=== PATIENT | female | born 1995 | race Caucasian/White ===

== ENCOUNTER 2018-12-16 23:10 | Emergency (ER) | payer OTHER ==
[2018-12-16 23:20] VITALS: BP 123/77
[2018-12-17 00:30] LABS: HCG UR QUAL NEGATIVE
--- NOTE | 2018-12-17 00:32 | ED Physician Documentation ---
History of Present Illness - Stated complaint Stated Complaint: LT BREAST PAIN - Chief complaint Chief Complaint: General - Additonal information Additional information: 23-year-old female presents the emergency department for evaluation of left breast pain which is been ongoing for the past several weeks. The patient recently was started on a new control and her breasts have hurt since then. The patient is concerned about infection. The patient denies any focal area of pain in her left breast or redness or fever or drainage from her nipple. Symptoms are described as moderate. No attempts at symptom management. No other associated symptoms Review of Systems Constitutional: denies: Fever, Chills Eyes: denies: Discharge Ears: denies: Ear pain Nose: denies: Congestion Throat: denies: Sore throat Cardiac: denies: Chest pain / pressure Respiratory: denies: Cough GI: denies: Abdominal Pain : denies: Dysuria Skin: denies: Rash Neurologic: denies: Generalized weakness PD PAST MEDICAL HISTORY - Past Medical History Past Medical History: Yes Cardiovascular: None Respiratory: None Neuro: Migraines Endocrine/Autoimmune: None GI: None PERSONAL TRAINER: None : None HEENT: None Psych: None Musculoskeletal: None Derm: None - Past Surgical History Past Surgical History: No - Allergies Allergies/Adverse Reactions: Allergies Allergy/AdvReac Type Severity Reaction Status Date / Time No Known Drug Allergies Allergy Verified 12/16/18 23:20 - Social History Does the pt smoke?: No Smoking Status: Never smoker Does the pt drink ETOH?: Yes Does the pt have substance abuse?: No - Immunizations Immunizations are current?: No - POLST Patient has POLST: No PD ED PE NORMAL - General General: Alert and oriented X 3, No acute distress - HEENT HEENT: Atraumatic, PERRL, EOMI, Ears normal - Neck Neck: Supple, no meningeal sign - Cardiac Cardiac: RRR - Respiratory Respiratory: No respiratory distress - Female Female : Master Cosmetologist present, Other (Both breasts were examined. A nurse tire balancer was present. There was no skin changes or erythema of the breast. There is no palpable area of localized fluid collection to suggest abscess. The patient reported generalized tenderness. The breasts were symmetric. There is no drainage from the nipple. There is no evidence of an acute infection) - Derm Derm: Normal color - Neuro Neuro: Alert and oriented X 3, Normal speech - Psych Psych: Normal affect Results - Vitals Vitals: Vital Signs - 24 hr 12/16/18 23:19 Temperature 36.6 C Heart Rate 72 Respiratory 16 Rate Blood Pressure 123/77 O2 Saturation 99 Oxygen O2 Source Room air - Labs Labs: Laboratory Tests 12/17/18 00:05 Ur Specific [place] 1.010 Urine HCG, Qual NEGATIVE PD MEDICAL DECISION MAKING - ED course ED course: Clinically, there is no physical evidence to suggest cellulitis or abscess of the breast. Currently, the patient appears appropriate for discharge and ongoing outpatient management. I recommended follow-up with primary care since she may require outpatient imaging of her breast to further assess her ongoing pain. I discussed warning signs and recommended returning to the emergency department for any worsening or any concerns Departure - Departure Disposition: 01 Home, Self Care Clinical Impression: Breast pain Condition: Good Instructions: Self Exam Breast Follow-Up: Ciera Wong MD [Primary Care Provider] - Within 1 week (If your symptoms are not improving please ask your primary care to arrange for further evaluation with possible imaging as an outpatient of your ongoing breast pain) Comments: Please return to the emergency department immediately for any worsening or any concerns Discharge Date/Time: 12/17/18 00:59
== END 2018-12-17 00:59 | disposition home or self-care (01) ==
LOC: ED 23:10
DX: N64.4 Mastodynia (principal)
CPT/HCPCS: 81025; 99283

== ENCOUNTER 2019-11-11 16:49 | Emergency (ER) | payer OTHER ==
[2019-11-11 16:59] VITALS: BP 116/68
--- NOTE | 2019-11-11 17:24 | ED Physician Documentation ---
PD HPI OPHTHO - Stated complaint Stated Complaint: LT EYE SWOLLEN - Chief complaint Chief Complaint: Heent - History obtained from History obtained from: Patient - History of Present Illness Timing - onset: Yesterday Timing - details: Abrupt onset (noted when she woke up and has continued. Feels more pressure in the left cheek and behind the eye when she is leaning forward or laying down. Feels little bit better sitting up.) Location: Left Quality / character: No: Itching, Aching Associated symptoms: Swelling (She feels is a little bit of swelling of the eyelids upper and lower on the left. She denies any foreign body sensation or discharge no redness of the eye. She feels some pressure in the left cheek and sinus). No: Redness Contributing factors: No: Exposed to conjunctivitis, Recent URI, Wears contacts Similar symptoms before: Has not had sx before Review of Systems Constitutional: denies: Fever, Chills Eyes: denies: Loss of vision, Decreased vision, Photophobia, Discharge, Irritation Nose: reports: Congestion. denies: Rhinorrhea / runny nose Throat: denies: Sore throat Respiratory: denies: Cough Neurologic: denies: Focal weakness, Numbness, Headache PD PAST MEDICAL HISTORY - Past Medical History Past Medical History: Yes Cardiovascular: None Respiratory: None Neuro: Migraines Endocrine/Autoimmune: None GI: None LOCUM TENENS PSYCHIATRIST: None : None HEENT: None Psych: Depression, Other Musculoskeletal: None Derm: None Other Past Medical History: insomnia - Past Surgical History Past Surgical History: No - Present Medications Home Medications: Ambulatory Orders Medication Instructions Recorded Confirmed Cetirizine [ZyrTEC] 10 mg PO DAILY #15 tablet 11/11/19 dexAMETHasone [Decadron] 4 mg PO DAILY #5 tablet 11/11/19 - Allergies Allergies/Adverse Reactions: Allergies Allergy/AdvReac Type Severity Reaction Status Date / Time No Known Drug Allergies Allergy Verified 11/11/19 16:57 - Social History Does the pt smoke?: No Smoking Status: Never smoker Does the pt drink ETOH?: No Does the pt have substance abuse?: Yes Substance Use and Type: Marijuana - Immunizations Immunizations are current?: Yes - POLST Patient has POLST: No PD ED PE NORMAL - Vitals Vital signs reviewed: Yes - General General: Alert and oriented X 3, No acute distress, Well developed/nourished - HEENT HEENT: PERRL, EOMI, Ears normal, Moist mucous membranes, Pharynx benign, Other (There is some mild swelling of the left upper eyelid without any focal tenderness no redness. She is able to open and close her eye symmetrically. There is normal movement and motor exam of the forehead as well as the mouth.) - Derm Derm: Normal color, Warm and dry, No rash - Neuro Neuro: Alert and oriented X 3, crab fisher 2-12 intact, No motor deficit, No sensory def icit, Normal speech, Other Results - Vitals Vitals: Vital Signs - 24 hr 11/11/19 16:57 Temperature 37.1 C Heart Rate 106 H Respiratory 15 Rate Blood Pressure 116/68 O2 Saturation 99 Oxygen O2 Source Room air PD MEDICAL DECISION MAKING - ED course Complexity details: considered differential (There is a little puffiness on the eyelids making it look like a slight droop. However she can open and close her eye as well and the rest of the face appears normal movement. I do not get the sense of an early Clifford's palsy at this point. There is no eyelid redness nor focal tenderness so does not feel like a stye. She has a feeling of pressure on the left cheek and behind the eye so I feel this is most consistent with a sinusitis.), d/w patient Departure - Departure Disposition: 01 Home, Self Care Clinical Impression: Sinusitis, acute Qualifiers: Sinusitis location: sphenoidal Recurrence: non-recurrent Qualified Code(s): J01.30 - Acute sphenoidal sinusitis, unspecified Condition: Stable Record reviewed to determine appropriate education?: Yes Instructions: ED Sinusitis No Abx Follow-Up: Ciera Wong MD [Primary Care Provider] - Prescriptions: Cetirizine [ZyrTEC] 10 mg PO DAILY #15 tablet dexAMETHasone [Decadron] 4 mg PO DAILY #5 tablet Comments: At this point I think your symptoms are from sinus pressure and inflammation that below and behind the eye. We will treated with antihistamines and steroid anti-inflammatory over the next week. Stay well-hydrated. You can use some saline nose spray several times a day as well declines a nasal passages. Recheck if not improved well over the next several days and return if worsening symptoms of swelling around the eye or if you notice any weakness developing generally on the side of the face. Discharge Date/Time: 11/11/19 18:05
[2019-11-11] MEDS ORDERED: DEXAMETHASONE 10 MG/ML VIAL PO STA (17:46)
[2019-11-11] MEDS ORDERED: CHERRY SYRUP 10 ML UDC PO ONE (17:46)
[2019-11-11] MEDS ORDERED: CETIRIZINE 10 MG TABLET PO STA (17:46)
== END 2019-11-11 18:05 | disposition home or self-care (01) ==
LOC: ED 16:49
DX: J01.30 Acute sphenoidal sinusitis, unspecified (principal)
CPT/HCPCS: 99282; 99284; A9270

== ENCOUNTER 2020-01-16 23:54 | Emergency (ER) | payer OTHER ==
--- NOTE | 2020-01-17 00:04 | ED Physician Documentation ---
PD HPI HEADACHE - Stated complaint Stated Complaint: MIGRAINE,NAUSEA - Chief complaint Chief Complaint: Neuro - History obtained from History obtained from: Patient - History of Present Illness Timing - onset: Enter time (17:00), Today Timing - details: Gradual onset Worst headache ever?: No: Worst headache ever? Location: Front, Left Quality: Throbbing Associated symptoms: Nausea, Vomiting. No: Fever, Weakness, Numbness Improved by: Rest, Dark room, Quiet Worsened by: Light, Noise, Moving Contributing factors: No: Anticoagulated, Possible carbon monoxide, Hypertension, Recent illness, Trauma Similar symptoms before: Diagnosis (migraine) Recently seen: Not recently seen Review of Systems Constitutional: reports: Reviewed and negative Eyes: reports: Photophobia Neurologic: reports: Headache. 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 : None HEENT: None Psych: Depression, Other Musculoskeletal: None Derm: None - Past Surgical History Past Surgical History: No - Present Medications Home Medications: Ambulatory Orders Medication Instructions Recorded Confirmed Guanfacine HCl 1 mg PO QPM 01/17/20 01/17/20 Ondansetron Odt [Zofran Odt] 4 mg PO Q4HR PRN 01/17/20 01/17/20 Promethazine [Phenergan] 25 mg PO Q6H PRN #10 tab 01/17/20 SUMAtriptan [Imitrex] 25 mg PO ONCE PRN #20 tablet 01/17/20 Venlafaxine [Effexor] 37.5 mg PO DAILY 01/17/20 01/17/20 - Allergies Allergies/Adverse Reactions: Allergies Allergy/AdvReac Type Severity Reaction Status Date / Time No Known Drug Allergies Allergy Verified 01/17/20 00:12 - Social History Does the pt smoke?: No Smoking Status: Never smoker Does the pt drink ETOH?: No Does the pt have substance abuse?: Yes - Immunizations Immunizations are current?: Yes - POLST Patient has POLST: No PD ED PE NORMAL - Vitals Vital signs reviewed: Yes - General General: Alert and oriented X 3, Well developed/nourished, Other (NAD in dark room (lights out for patient comfort)) - HEENT HEENT: Moist mucous membranes - Neck Neck: Supple, no meningeal sign - Cardiac Cardiac: RRR, No murmur - Respiratory Respiratory: No respiratory distress, Clear bilaterally - Neuro Neuro: Alert and oriented X 3, traverse rod assembler 2-12 intact, No motor deficit, No sensory deficit, Normal speech Eye Opening: Spontaneous Motor: Obeys Commands Verbal: Oriented GCS Score: 15 Results - Vitals Vitals: Oxygen O2 Source Room air PD MEDICAL DECISION MAKING - ED course Complexity details: re-evaluated patient, considered differential, d/w patient ED course: presents with headache c/w previous migraines. has had w/u for migraines in the past including MRI. excellent relief in ED with toradol, benadryl, and phenergan Departure - Departure Disposition: 01 Home, Self Care Clinical Impression: Migraine Qualifiers: Migraine type: without aura Status migrainosus presence: with status migrainosus Intractability: not intractable Qualified Code(s): G43.001 - Migraine without aura, not intractable, with status migrainosus Condition: Good Instructions: Imitrex, ED Headache Migraine Follow-Up: Ciera Wong MD [Primary Care Provider] - Prescriptions: Promethazine [Phenergan] 25 mg PO Q6H PRN #10 tab PRN Reason: Nausea / Vomiting SUMAtriptan [Imitrex] 25 mg PO ONCE PRN #20 tablet PRN Reason: Headache Discharge Date/Time: 01/17/20 02:19
[2020-01-17] MEDS ORDERED: KETOROLAC 60 MG/2 ML VIAL IM STA (00:20)
[2020-01-17] MEDS ORDERED: PROMETHAZINE 25 MG/1 ML VIAL IM STA (00:20)
[2020-01-17] MEDS ORDERED: diphenhydrAMINE INJ 50 MG/ML VIAL IM STA (00:21)
[2020-01-17 02:19] VITALS: BP 104/74
== END 2020-01-17 02:19 | disposition home or self-care (01) ==
LOC: ED 23:54
DX: G43.001 Migraine without aura, not intractable, with status migrainosus (principal)
CPT/HCPCS: 96372; 99283; 99284; J1200

== ENCOUNTER 2020-08-06 20:33 | Emergency (ER) | payer OTHER ==
--- NOTE | 2020-08-06 21:35 | ED Physician Documentation ---
History of Present Illness - Stated complaint Stated Complaint: TOOTH PX - Chief complaint Chief Complaint: Heent - History obtained from History obtained from: Patient - Additonal information Additional information: The patient is a 25-year-old female presents with a chief complaint of dental pain. She reports about 3 to 4 weeks ago she had a partial tooth removal on her left posterior molar and reports some inflammation irritation and noted some discharge without facial swelling or fevers. Otherwise denies any complaints denies any history of endocarditis or IV drug abuse. Review of Systems Constitutional: reports: Reviewed and negative Eyes: reports: Reviewed and negative Ears: reports: Reviewed and negative Nose: reports: Reviewed and negative Throat: reports: Dental pain / toothache Cardiac: reports: Reviewed and negative Respiratory: reports: Reviewed and negative GI: reports: Reviewed and negative : reports: Reviewed and negative Skin: reports: Reviewed and negative Musculoskeletal: reports: Reviewed and negative Neurologic: reports: Reviewed and negative Psychiatric: reports: Reviewed and negative Endocrine: reports: Reviewed and negative Immunocompromised: reports: Reviewed and negative PD PAST MEDICAL HISTORY - Past Medical History Cardiovascular: None Respiratory: None Neuro: Migraines Endocrine/Autoimmune: None GI: None LITIGATION COUNSEL: None : None HEENT: None Psych: Depression, Other Musculoskeletal: None Derm: None - Past Surgical History Past Surgical History: No - Present Medications Home Medications: Ambulatory Orders Medication Instructions Recorded Confirmed Guanfacine HCl 1 mg PO QPM 01/17/20 01/17/20 Ondansetron Odt [Zofran Odt] 4 mg PO Q4HR PRN 01/17/20 01/17/20 Promethazine [Phenergan] 25 mg PO Q6H PRN #10 tab 01/17/20 SUMAtriptan [Imitrex] 25 mg PO ONCE PRN #20 tablet 01/17/20 Venlafaxine [Effexor] 37.5 mg PO DAILY 01/17/20 01/17/20 Penicillin V Potassium 500 mg PO QID #28 tablet 08/06/20 - Allergies Allergies/Adverse Reactions: Allergies Allergy/AdvReac Type Severity Reaction Status Date / Time No Known Drug Allergies Allergy Verified 08/06/20 20:45 - Social History Does the pt smoke?: No Smoking Status: Never smoker Does the pt drink ETOH?: No Does the pt have substance abuse?: Yes - Immunizations Immunizations are current?: Yes - POLST Patient has POLST: No PD ED PE NORMAL - Vitals Vital signs reviewed: Yes - General General: Alert and oriented X 3, No acute distress - HEENT HEENT: PERRL, Other (Tenderness and erythema around tooth position #17 but no obvious abscess or fluctuance or induration.No signs of ANUG or Jorge Alberto's.) - Neck Neck: Supple, no meningeal sign - Cardiac Cardiac: RRR, No murmur - Respiratory Respiratory: Clear bilaterally - Abdomen Abdomen: Normal bowel sounds, Soft, Non tender, Non distended - Derm Derm: Warm and dry - Extremities Extremities: No deformity - Neuro Neuro: Alert and oriented X 3 - Psych Psych: Normal mood, Normal affect PD ED PE EXPANDED - HEENT HEENT Visual: 1 - tenderness 2 - tenderness Results - Vitals Vitals: Vital Signs - 24 hr 08/06/20 08/06/20 20:40 22:08 Temperature 37.1 C 37 C Heart Rate 97 78 Respiratory 17 18 Rate Blood Pressure 141/93 H 129/80 O2 Saturation 100 98 Oxygen O2 Source Room air - Labs Labs: Laboratory Tests 08/06/20 21:30 Ur Specific [place] 1.010 Urine HCG, Qual NEGATIVE PD MEDICAL DECISION MAKING - ED course Complexity details: considered differential (dental infection post partial tooth extraction, no obvious abscess for I&D. will intiate treatment with pen vk.) Departure - Departure Disposition: 01 Home, Self Care Clinical Impression: Dental infection Condition: Stable Instructions: ED Tooth Pain Follow-Up: Ciera Wong MD [Primary Care Provider] - 08/09/20 Prescriptions: Penicillin V Potassium 500 mg PO QID #28 tablet Comments: take antibiotics as directed. take ibuprofen or tylenol as needed for pain. follow up with your dental provider on sunday. return to the emergency department for worsening pain, fevers, swelling or any concerns. Discharge Date/Time: 08/06/20 22:08
[2020-08-06 21:42] LABS: HCG UR QUAL NEGATIVE
[2020-08-06] MEDS ORDERED: PENICILLIN VK 250 MG TABLET PO STA (21:55)
[2020-08-06 22:08] VITALS: BP 129/80
== END 2020-08-06 22:08 | disposition home or self-care (01) ==
LOC: ED 20:33
DX: K04.7 Periapical abscess without sinus (principal)
CPT/HCPCS: 81025; 99283; 99284; A9270

== ENCOUNTER 2020-10-28 15:41 | Emergency (ER) | payer OTHER ==
[2020-10-28] MEDS ORDERED: PANTOPRAZOLE 40 MG VIAL IVP STA (16:15)
[2020-10-28] MEDS ORDERED: ONDANSETRON 4 MG/2 ML VIAL IVP STA (16:18)
--- NOTE | 2020-10-28 16:27 | ED Physician Documentation ---
History of Present Illness - Stated complaint Stated Complaint: N/V - Chief complaint Chief Complaint: Abd Pain - History obtained from History obtained from: Patient - History of Present Illness Timing: Yesterday Pain level max: 0 Pain level now: 0 - Additonal information Additional information: 25-year-old female uses marijuana 3-4 times a week. She states that she started vomiting last night and has continued to vomit today. One episode had bright red blood, another episode today had dark blood in it. She states the last episode did not appear to have blood. No diarrhea. No constipation. Denies any possibility of . No fevers. No chills. No recent antibiotics or travel. Nothing makes it better or worse. 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 : None HEENT: None Psych: Depression, Other Musculoskeletal: None Derm: None - Past Surgical History Past Surgical History: No - Present Medications Home Medications: Ambulatory Orders Medication Instructions Recorded Confirmed Guanfacine HCl 1 mg PO QPM 01/17/20 01/17/20 Ondansetron Odt [Zofran Odt] 4 mg PO Q4HR PRN 01/17/20 01/17/20 Promethazine [Phenergan] 25 mg PO Q6H PRN #10 tab 01/17/20 SUMAtriptan [Imitrex] 25 mg PO ONCE PRN #20 tablet 01/17/20 Venlafaxine [Effexor] 37.5 mg PO DAILY 01/17/20 01/17/20 Penicillin V Potassium 500 mg PO QID #28 tablet 08/06/20 Esomeprazole Magnesium [Nexium] 20 mg PO DAILY #30 capsule. 10/28/20 Ondansetron Odt [Zofran] 4 mg TL Q6H PRN #10 tablet 10/28/20 - Allergies Allergies/Adverse Reactions: Allergies Allergy/AdvReac Type Severity Reaction Status Date / Time No Known Drug Allergies Allergy Verified 10/28/20 15:53 - Social History Does the pt smoke?: No Smoking Status: Never smoker Does the pt drink ETOH?: No Does the pt have substance abuse?: Yes - Immunizations Immunizations are current?: Yes - POLST Patient has POLST: No PD ED PE NORMAL - Vitals Vital signs reviewed: Yes - General General: Alert and oriented X 3, No acute distress - HEENT HEENT: Moist mucous membranes - Neck Neck: Supple, no meningeal sign, Other (No crepitus) - Cardiac Cardiac: RRR, Strong equal pulses - Respiratory Respiratory: No respiratory distress, Clear bilaterally - Abdomen Abdomen: Soft, Non tender, Non distended - Back Back: No CVA TTP - Derm Derm: Warm and dry - Extremities Extremities: No edema, No calf tenderness / cord - Neuro Neuro: Alert and oriented X 3 - Psych Psych: Normal mood, Normal affect Results - Vitals Vitals: Vital Signs - 24 hr 10/28/20 10/28/20 15:47 18:54 Temperature 36.8 C 36.9 C Heart Rate 98 86 Respiratory 16 18 Rate Blood Pressure 132/95 H 115/63 O2 Saturation 97 100 Oxygen O2 Source Room air - Labs Labs: Laboratory Tests 10/28/20 10/28/20 10/28/20 17:00 17:00 17:00 WBC 11.8 H RBC 4.55 Hgb 13.4 Hct 42.4 MCV 93.2 MCH 29.5 MCHC 31.6 L RDW 13.0 Plt Count 348 MPV 10.8 Neut # (Auto) 8.0 H Lymph # (Auto) 2.9 [place] # (Auto) 0.6 Eos # (Auto) 0.1 Baso # (Auto) 0.1 Absolute Nucleated RBC 0.00 Nucleated RBC % 0.0 PT INR APTT Sodium 137 Potassium 3.1 L Chloride 103 Carbon Dioxide 22 Anion Gap 12.0 BUN 9 Creatinine 0.6 Estimated GFR (MDRD) 124 Glucose 109 H Calcium 9.5 Total Bilirubin 1.3 H AST 19 ALT 13 Alkaline Phosphatase 51 Total Protein 8.2 Albumin 4.7 Globulin 3.5 Albumin/Globulin Ratio 1.3 Lipase 27 Blood Type A POSITIVE Antibody Screen NEGATIVE 10/28/20 17:44 WBC RBC Hgb Hct MCV MCH MCHC RDW Plt Count MPV Neut # (Auto) Lymph # (Auto) [place] # (Auto) Eos # (Auto) Baso # (Auto) Absolute Nucleated RBC Nucleated RBC % PT 12.7 H INR 1.1 APTT 24.5 L Sodium Potassium Chloride Carbon Dioxide Anion Gap BUN Creatinine Estimated GFR (MDRD) Glucose Calcium Total Bilirubin AST ALT Alkaline Phosphatase Total Protein Albumin Globulin Albumin/Globulin Ratio Lipase Blood Type Antibody Screen PD MEDICAL DECISION MAKING - ED course Complexity details: reviewed results, re-evaluated patient, considered differential, d/w patient ED course: Patient is well-appearing, nontoxic. Afebrile. No further vomiting here. Symptoms resolved with Zofran and haloperidol. Hemoglobin is normal. Vital signs are stable. Tolerating p.o. without difficulty. Likely small amount of upper GI bleed secondary to forceful vomiting. No crepitus. No evidence of esophageal rupture. Patient counseled regarding signs and symptoms for which I believe and urgent re-evaluation would be necessary. Patient with good understanding of and agreement to plan and is comfortable going home at this time This document was made in part using voice recognition software. While efforts are made to proofread this document, sound alike and grammatical errors may occur. We will place on a PPI for home. Departure - Departure Disposition: 01 Home, Self Care Clinical Impression: Vomiting Qualifiers: Vomiting type: unspecified Vomiting Intractability: non-intractable Nausea presence: with nausea Qualified Code(s): R11.2 - Nausea with vomiting, unspecified Condition: Good Instructions: ED Nausea Vomiting Follow-Up: Ciera Wong MD [Primary Care Provider] - Within 1 week Prescriptions: Esomeprazole Magnesium [Nexium] 20 mg PO DAILY #30 capsule. Ondansetron Odt [Zofran] 4 mg TL Q6H PRN #10 tablet PRN Reason: Nausea / Vomiting Comments: Follow-up with your doctor for further care. Return if you worsen. Drink plenty of fluids. If you have continued bleeding, you need to return to the emergency department. Discharge Date/Time: 10/28/20 19:00
[2020-10-28 17:22] LABS: BASOPHILS # (AUTO) 0.1 10^3/uL (0.0-0.1); BASOPHILS % (AUTO) 0.8 %; EOSINOPHILS # (AUTO) 0.1 10^3/uL (0.0-0.7); EOSINOPHILS % (AUTO) 0.7 %; HGB - HEMOGLOBIN 13.4 g/dL (12.0-16.0); LYMPHOCYTES # (AUTO) 2.9 10^3/uL (1.5-3.5); LYMPHOCYTES % (AUTO) 24.6 %; MEAN CORPUSCULAR HEMOGLOBIN 29.5 pg (27.0-31.0); MEAN CORPUSCULAR HGB CONC 31.6 g/dL (32.0-36.0); MEAN CORPUSCULAR VOLUME 93.2 fL (81.0-99.0); MEAN PLATELET VOLUME 10.8 fL (7.9-10.8); MONOCYTES # (AUTO) 0.6 10^3/uL (0.0-1.0); MONOCYTES % (AUTO) 5.3 %; NEUTROPHILS % (AUTO) 68.2 %; PLT - PLATELET COUNT 348 10^3/uL (130-450); RED BLOOD COUNT 4.55 10^6/uL (4.20-5.40); WHITE BLOOD COUNT 11.8 x10^3/uL (4.8-10.8)
[2020-10-28 17:32] LABS: ALBUMIN 4.7 g/dL (3.2-5.5); ALBUMIN/GLOBULIN RATIO 1.3 (1.0-2.2); BILIRUBIN,TOTAL 1.3 mg/dL (0.2-1.0); CALCIUM 9.5 mg/dL (8.5-10.3); CREATININE 0.6 mg/dL (0.4-1.0); TOTAL PROTEIN 8.2 g/dL (6.7-8.2)
[2020-10-28] MEDS ORDERED: SODIUM CHLORIDE 0.9% 1,000 ML IV STA (17:46)
[2020-10-28] MEDS ORDERED: HALOPERIDOL 5 MG/ML VIAL IVP STA (17:46)
[2020-10-28 17:58] LABS: INR 1.1 (0.8-1.2); PT - PROTHROMBIN TIME 12.7 secs (9.9-12.6)
[2020-10-28 18:05] LABS: PARTIAL THROMBOPLASTIN TIME 24.5 secs (24.9-33.3)
[2020-10-28 18:55] VITALS: BP 115/63
== END 2020-10-28 19:00 | disposition home or self-care (01) ==
LOC: ED 15:41
DX: R11.2 Nausea with vomiting, unspecified (principal)
CPT/HCPCS: 36415; 80053; 81001; 81003; 83690; 85025; 85610; 85730; 86850; 86900; 86901; 87086; 96374; 96375; 99284

== ENCOUNTER 2021-07-11 18:29 | Emergency (ER) | payer OTHER ==
[2021-07-11] MEDS ORDERED: SODIUM CHLORIDE 0.9% 1,000 ML IV STA (19:54)
[2021-07-11] MEDS ORDERED: ONDANSETRON 4 MG/2 ML VIAL IVP STA (19:55)
[2021-07-11] MEDS ORDERED: diphenhydrAMINE INJ 50 MG/ML VIAL IVP STA (19:55)
[2021-07-11] MEDS ORDERED: KETOROLAC 30 MG/ML VIAL IVP STA (19:55)
--- NOTE | 2021-07-11 20:09 | ED Physician Documentation ---
History of Present Illness - Stated complaint Stated Complaint: NAUSEA, MIGRAINE, FATIGUE, BACK PX - Chief complaint Chief Complaint: General - History obtained from History obtained from: Patient, Family - History of Present Illness Timing: How many weeks ago (2) Pain level max: 6 Pain level now: 5 - Additonal information Additional information: 25-year-old female presents to the emergency department stating she has had intermittent migraine headaches for the past 2 weeks. This is a chronic ongoing condition for her. FiDiurnalet used to work well but she ran out. She also states that she is on lithium and has not had her level checked for about 6 months. She states that she has had diarrhea as well. No blood in the stool. No fevers. Occasional abdominal cramping. Nothing makes it better or worse. No recent antibiotics. No vaginal bleeding or discharge. No urinary symptoms. 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 HEENT: None Psych: Depression, Other Musculoskeletal: None Derm: None - Past Surgical History Past Surgical History: No - Present Medications Home Medications: Ambulatory Orders Medication Instructions Recorded Confirmed Guanfacine HCl 1 mg PO QPM 01/17/20 01/17/20 Ondansetron Odt [Zofran Odt] 4 mg PO Q4HR PRN 01/17/20 01/17/20 Promethazine [Phenergan] 25 mg PO Q6H PRN #10 tab 01/17/20 SUMAtriptan [Imitrex] 25 mg PO ONCE PRN #20 tablet 01/17/20 Venlafaxine [Effexor] 37.5 mg PO DAILY 01/17/20 01/17/20 Penicillin V Potassium 500 mg PO QID #28 tablet 08/06/20 Esomeprazole Magnesium [Nexium] 20 mg PO DAILY #30 capsule. 10/28/20 Ondansetron Odt [Zofran] 4 mg TL Q6H PRN #10 tablet 10/28/20 Butalb/Acetaminophen/Caffeine 1 cap PO Q6H PRN #10 cap 07/11/21 [Fioricet 50-300-40 mg Capsule] - Allergies Allergies/Adverse Reactions: Allergies Allergy/AdvReac Type Severity Reaction Status Date / Time No Known Drug Allergies Allergy Verified 07/11/21 18:35 - Social History Does the pt smoke?: No Smoking Status: Never smoker Does the pt drink ETOH?: No Does the pt have substance abuse?: Yes - Immunizations Immunizations are current?: Yes - POLST Patient has POLST: No PD ED PE NORMAL - Vitals Vital signs reviewed: Yes - General General: Alert and oriented X 3 - HEENT HEENT: Atraumatic, PERRL, Moist mucous membranes - Neck Neck: Supple, no meningeal sign - Cardiac Cardiac: RRR, Strong equal pulses - Respiratory Respiratory: No respiratory distress, Clear bilaterally - Abdomen Abdomen: Soft, Non tender, Non distended - Back Back: No CVA TTP, No spinal TTP - Derm Derm: Warm and dry - Extremities Extremities: No edema, No calf tenderness / cord - Neuro Neuro: Alert and oriented 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, 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, No motor deficit, No sensory deficit, Normal speech Eye Opening: Spontaneous Motor: Obeys Commands Verbal: Oriented GCS Score: 15 Results - Vitals Vitals: Vital Signs - 24 hr 07/11/21 07/11/21 07/11/21 18:35 19:59 21:45 Temperature 36.5 C 37.1 C Heart Rate 100 82 82 Respiratory 16 16 14 Rate Blood Pressure 130/83 H 135/89 H 119/89 H O2 Saturation 100 98 98 Oxygen O2 Source Room air - Labs Labs: Laboratory Tests 07/11/21 07/11/21 07/11/21 19:02 20:13 20:13 WBC 10.2 RBC 4.54 Hgb 13.7 Hct 42.4 MCV 93.4 MCH 30.2 MCHC 32.3 RDW 13.2 Plt Count 326 MPV 10.4 Neut # (Auto) 7.0 H Lymph # (Auto) 2.5 [place] # (Auto) 0.6 Eos # (Auto) 0.0 Baso # (Auto) 0.1 Absolute Nucleated RBC 0.00 Nucleated RBC % 0.0 Sodium 138 Potassium 3.4 L Chloride 101 Carbon Dioxide 25 Anion Gap 12.0 BUN 6 Creatinine 0.6 Estimated GFR (MDRD) 124 Glucose 91 Calcium 9.8 Total Bilirubin 1.6 H AST 17 ALT 21 Alkaline Phosphatase 46 Total Protein 8.4 H Albumin 4.9 Globulin 3.5 Albumin/Globulin Ratio 1.4 Lipase 29 Urine Color YELLOW Urine Clarity CLEAR Urine pH 6.0 Ur Specific [place] 1.020 Urine Protein NEGATIVE Urine Glucose (UA) NEGATIVE Urine Ketones NEGATIVE Urine Occult Blood NEGATIVE Urine Nitrite NEGATIVE Urine Bilirubin NEGATIVE Urine Urobilinogen 0.2 (NORMAL) Ur Leukocyte Esterase NEGATIVE Ur Microscopic Review NOT INDICATED Urine Culture Comments NOT INDICATED Urine HCG, Qual NEGATIVE Last Dose Date Last Dose Time [place] 07/11/21 20:13 WBC RBC Hgb Hct MCV MCH MCHC RDW Plt Count MPV Neut # (Auto) Lymph # (Auto) [place] # (Auto) Eos # (Auto) Baso # (Auto) Absolute Nucleated RBC Nucleated RBC % Sodium Potassium Chloride Carbon Dioxide Anion Gap BUN Creatinine Estimated GFR (MDRD) Glucose Calcium Total Bilirubin AST ALT Alkaline Phosphatase Total Protein Albumin Globulin Albumin/Globulin Ratio Lipase Urine Color Urine Clarity Urine pH Ur Specific [place] Urine Protein Urine Glucose (UA) Urine Ketones Urine Occult Blood Urine Nitrite Urine Bilirubin Urine Urobilinogen Ur Leukocyte Esterase Ur Microscopic Review Urine Culture Comments Urine HCG, Qual Last Dose Date Not Reportable Last Dose Time Not Reportable [place] 0.21 PD MEDICAL DECISION MAKING - ED course Complexity details: reviewed results, re-evaluated patient, considered differential, d/w patient ED course: No significant lab abnormalities. Feels much better after IV fluids, Toradol, Zofran and Benadryl. Headache resolved. No diarrhea in the emergency department. We will prescribe Fioricet for home. We will have her follow-up with her doctor for further investigation of the diarrhea if this continues. Patient is very well-appearing, nontoxic. Tolerating p.o. without difficulty. Patient counseled regarding signs and symptoms for which I believe and urgent re-evaluation would be necessary. Patient with good understanding of and agreement to plan and is comfortable going home at this time This document was made in part using voice recognition software. While efforts are made to proofread this document, sound alike and grammatical errors may occur. Departure - Departure Disposition: 01 Home, Self Care Clinical Impression: Migraine Qualifiers: Migraine type: unspecified Status migrainosus presence: without status migrainosus Intractability: not intractable Qualified Code(s): G43.909 - Migraine, unspecified, not intractable, without status migrainosus Diarrhea Qualifiers: Diarrhea type: unspecified type Qualified Code(s): R19.7 - Diarrhea, unspecified Condition: Good Instructions: ED Diet Vomiting Diarrhea, ED Headache Migraine Follow-Up: YUDY RAMIREZ DO [Primary Care Provider] - Within 1 week Prescriptions: Butalb/Acetaminophen/Caffeine [Fioricet 50-300-40 mg Capsule] 1 cap PO Q6H PRN #10 cap PRN Reason: headache Comments: Please follow-up with your doctor for further care. Return if you worsen. Continue your current medications at home. If you continue have diarrhea, you should have a stool testing performed by your doctor. Discharge Date/Time: 07/11/21 21:46
[2021-07-11 20:21] LABS: BILIRUBIN,URINE NEGATIVE (NEGATIVE); GLUCOSE, URINE (UA) NEGATIVE (NEGATIVE); KETONES,URINE (UA) NEGATIVE (NEGATIVE); LEUKOCYTE ESTERASE, URINE NEGATIVE (NEGATIVE); NITRITE,URINE NEGATIVE (NEGATIVE); OCCULT BLOOD,URINE NEGATIVE (NEGATIVE); PROTEIN,URINE NEGATIVE (NEGATIVE); UROBILINOGEN,URINE 0.2 (NORMAL) E.U./dL (NORMAL)
[2021-07-11 20:29] LABS: CLARITY,URINE CLEAR (CLEAR); HCG UR QUAL NEGATIVE
[2021-07-11 20:33] LABS: BASOPHILS # (AUTO) 0.1 10^3/uL (0.0-0.1); BASOPHILS % (AUTO) 0.7 %; EOSINOPHILS % (AUTO) 0.4 %; HCT - HEMATOCRIT 42.4 % (37.0-47.0); HGB - HEMOGLOBIN 13.7 g/dL (12.0-16.0); LYMPHOCYTES # (AUTO) 2.5 10^3/uL (1.5-3.5); LYMPHOCYTES % (AUTO) 24.6 %; MEAN CORPUSCULAR HEMOGLOBIN 30.2 pg (27.0-31.0); MEAN CORPUSCULAR HGB CONC 32.3 g/dL (32.0-36.0); MEAN CORPUSCULAR VOLUME 93.4 fL (81.0-99.0); MEAN PLATELET VOLUME 10.4 fL (7.9-10.8); MONOCYTES # (AUTO) 0.6 10^3/uL (0.0-1.0); MONOCYTES % (AUTO) 5.4 %; NEUTROPHILS % (AUTO) 68.6 %; PLT - PLATELET COUNT 326 10^3/uL (130-450); RED BLOOD COUNT 4.54 10^6/uL (4.20-5.40); RED CELL DISTRIBUTION WIDTH 13.2 % (12.0-15.0); WHITE BLOOD COUNT 10.2 x10^3/uL (4.8-10.8)
[2021-07-11 20:36] LABS: ALBUMIN 4.9 g/dL (3.2-5.5); ALBUMIN/GLOBULIN RATIO 1.4 (1.0-2.2); BILIRUBIN,TOTAL 1.6 mg/dL (0.2-1.0); CALCIUM 9.8 mg/dL (8.5-10.3); CREATININE 0.6 mg/dL (0.4-1.0); POTASSIUM 3.4 mmol/L (3.5-5.0); TOTAL PROTEIN 8.4 g/dL (6.7-8.2)
[2021-07-11 20:41] LABS: LITHIUM 0.21 mmol/L
[2021-07-11 21:46] VITALS: BP 119/89
== END 2021-07-11 21:46 | disposition home or self-care (01) ==
LOC: ED 18:29
DX: G43.909 Migraine, unspecified, not intractable, without status migrainosus (principal); R19.7 Diarrhea, unspecified
CPT/HCPCS: 36415; 80053; 80178; 81003; 81025; 83690; 85025; 96374; 96375; 99283; 99284; J1200; 81001; 87086

== ENCOUNTER 2022-01-18 18:11 | Emergency (ER) | payer OTHER ==
[2022-01-18 18:17] VITALS: BP 125/80
[2022-01-18] MEDS ORDERED: DEXAMETHASONE 10 MG/ML VIAL PO STA (18:41)
[2022-01-18] MEDS ORDERED: CHERRY SYRUP 10 ML UDC PO ONE (18:41)
[2022-01-18] MEDS ORDERED: HYDROcod/ACETAM 5/325 MG TABLET PO STA (18:41)
--- NOTE | 2022-01-18 18:44 | ED Physician Documentation ---
History of Present Illness - Stated complaint Stated Complaint: JAW PX - Chief complaint Chief Complaint: General - History obtained from History obtained from: Patient - History of Present Illness Timing: How many weeks ago (1) Pain level max: 8 Pain level now: 5 - Additonal information Additional information: 26-year-old female states she has a history of TMJ syndrome. She states increasing pain to the right TMJ. Worse with opening and closing her mouth. No relief with Tylenol and Motrin. No trauma. No fevers. No chills. Denies any possibility of . 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 HEENT: None Psych: Depression, Other Musculoskeletal: None Derm: None - Past Surgical History Past Surgical History: No - Present Medications Home Medications: Ambulatory Orders Medication Instructions Recorded Confirmed Guanfacine HCl 1 mg PO QPM 01/17/20 01/17/20 Ondansetron Odt [Zofran Odt] 4 mg PO Q4HR PRN 01/17/20 01/17/20 Promethazine [Phenergan] 25 mg PO Q6H PRN #10 tab 01/17/20 SUMAtriptan [Imitrex] 25 mg PO ONCE PRN #20 tablet 01/17/20 Venlafaxine [Effexor] 37.5 mg PO DAILY 01/17/20 01/17/20 Penicillin V Potassium 500 mg PO QID #28 tablet 08/06/20 Esomeprazole Magnesium [Nexium] 20 mg PO DAILY #30 capsule. 10/28/20 Ondansetron Odt [Zofran] 4 mg TL Q6H PRN #10 tablet 10/28/20 Butalb/Acetaminophen/Caffeine 1 cap PO Q6H PRN #10 cap 07/11/21 [Fioricet 50-300-40 mg Capsule] HYDROcod/ACETAM 5/325 [[place] 5/325] 1 - 2 ea PO Q6H PRN #10 tablet 01/18/22 Meloxicam [Mobic] 15 mg PO DAILY PRN #20 tablet 01/18/22 - Allergies Allergies/Adverse Reactions: Allergies Allergy/AdvReac Type Severity Reaction Status Date / Time No Known Drug Allergies Allergy Verified 01/18/22 18:17 - Social History Does the pt smoke?: No Smoking Status: Never smoker Does the pt drink ETOH?: No Does the pt have substance abuse?: Yes - Immunizations Immunizations are current?: Yes - POLST Patient has POLST: No PD ED PE NORMAL - Vitals Vital signs reviewed: Yes - General General: Alert and oriented X 3, No acute distress - HEENT HEENT: Moist mucous membranes, Other (No swelling over the bilateral TMJ. The right TMJ has crepitus with opening and closing of the jaw.) - Neck Neck: Supple, no meningeal sign - Cardiac Cardiac: RRR - Respiratory Respiratory: No respiratory distress, Clear bilaterally - Derm Derm: Warm and dry - Neuro Neuro: Alert and oriented X 3 Results - Vitals Vitals: Vital Signs - 24 hr 01/18/22 18:15 Temperature 36.9 C Heart Rate 87 Respiratory 16 Rate Blood Pressure 125/80 O2 Saturation 100 Oxygen O2 Source Room air PD MEDICAL DECISION MAKING - ED course Complexity details: considered differential, d/w patient ED course: Patient with what appears to be TMJ of the right side of the jaw. No evidence of dislocation or infection. No indication for imaging. Given a dose of steroids, will place on pain medication for a few days for home. Recommend she follow-up with her dentist to discuss mouthguard that she does clench and grind her teeth regularly as well. Patient counseled regarding signs and symptoms for which I believe and urgent re-evaluation would be necessary. Patient with good understanding of and agreement to plan and is comfortable going home at this t [facility] This document was made in part using voice recognition software. While efforts are made to proofread this document, sound alike and grammatical errors may occur. Departure - Departure Disposition: 01 Home, Self Care Clinical Impression: TMJ arthralgia Qualifiers: Laterality: right Qualified Code(s): M26.621 - Arthralgia of right temporomandibular joint Condition: Good Instructions: ED TMJ Syndrome Follow-Up: your,dentist this week [Other] Prescriptions: Meloxicam [Mobic] 15 mg PO DAILY PRN #20 tablet PRN Reason: pain HYDROcod/ACETAM 5/325 [[place] 5/325] 1 - 2 ea PO Q6H PRN #10 tablet PRN Reason: Pain Comments: Please follow-up with your dentist for further care. Return if you worsen. Your prescriptions were sent to [facility] in [place]. I am prescribing a short course of narcotic pain medication for you. These are potentially dangerous and addictive medications that should be used carefully. These medications may constipate you. Take an znlv-zhm-wnezaan stool softener (docusate) twice daily with plenty of water while taking these medications. If you go 24 hours without a bowel movement, take [id number]-iqybmdy miralax, per package instructions. Do not drink or drive while taking these medications. If you received narcotic or sedating medications while in the emergency department, do not drive for 24 hours. Store this medication in a safe, secure place and out of reach of children. It is a violation of federal law to give or sell this medication to another person or to use in a manner other than prescribed. The ED will not refill narcotic prescriptions, including prescriptions lost or stolen. To dispose of unwanted medications: 1. [facility] [address] in [place] has a medication drop box. They accept prescription medications (in pill form) Sunday through Sunday 9:00 a.m. to 5:00 p.m. 2. [facility] [employer] accepts prescription medications (in pill form only) for disposal year round. Call for more information. 3. Contact the [facility] for the next [facility] sponsored prescription drug collection event. , [phone], or [phone]; Discharge Date/Time: 01/18/22 18:50
== END 2022-01-18 18:50 | disposition home or self-care (01) ==
LOC: ED 18:11
DX: M26.621 Arthralgia of right temporomandibular joint (principal)
CPT/HCPCS: 99282; 99283; A9270

== ENCOUNTER 2022-04-26 23:39 | Emergency (ER) | payer OTHER ==
[2022-04-27 00:17] LABS: BASOPHILS # (AUTO) 0.1 10^3/uL (0.0-0.1); BASOPHILS % (AUTO) 0.6 %; EOSINOPHILS # (AUTO) 0.4 10^3/uL (0.0-0.7); EOSINOPHILS % (AUTO) 2.2 %; HCT - HEMATOCRIT 43.8 % (37.0-47.0); HGB - HEMOGLOBIN 13.9 g/dL (12.0-16.0); LYMPHOCYTES # (AUTO) 3.1 10^3/uL (1.5-3.5); LYMPHOCYTES % (AUTO) 18.1 %; MEAN CORPUSCULAR HEMOGLOBIN 29.5 pg (27.0-31.0); MEAN CORPUSCULAR HGB CONC 31.7 g/dL (32.0-36.0); MEAN PLATELET VOLUME 10.4 fL (7.9-10.8); MONOCYTES # (AUTO) 0.8 10^3/uL (0.0-1.0); MONOCYTES % (AUTO) 4.9 %; NEUTROPHILS # (AUTO) 12.7 10^3/uL (1.5-6.6); NEUTROPHILS % (AUTO) 73.8 %; PLT - PLATELET COUNT 331 10^3/uL (130-450); RED BLOOD COUNT 4.71 10^6/uL (4.20-5.40); RED CELL DISTRIBUTION WIDTH 12.8 % (12.0-15.0); WHITE BLOOD COUNT 17.2 x10^3/uL (4.8-10.8)
[2022-04-27 00:25] VITALS: BP 118/83
--- NOTE | 2022-04-27 00:29 | ED Physician Documentation ---
PD HPI ABD PAIN - Stated complaint Stated Complaint: ABD PX,NAUSEA - Chief complaint Chief Complaint: Abd Pain - History obtained from History obtained from: Patient - Additional information Additional information: Patient is a 26-year-old female with no significant past medical history presenting for evaluation of lower abdominal cramping and 1 episode of emesis consisting of food that started this evening around 5 PM. Patient had salmon was fried rice this evening for dinner And may have already been feeling an upset stomach. After dinner she started having more cramping and had 1 episode of e mesis that was nonbloody or bilious. Her nausea improved with the emesis but the abdominal cramping did not. She denies fever, cough, congestion chest pain or difficulty breathing. She denies vaginal discharge, dysuria, vaginal bleeding or concerns for . No sick contacts or recent travel. 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 HEENT: None Psych: Depression, Other Musculoskeletal: None Derm: None - Past Surgical History Past Surgical History: No - Present Medications Home Medications: Ambulatory Orders Medication Instructions Recorded Confirmed Guanfacine HCl 1 mg PO QPM 01/17/20 01/17/20 Ondansetron Odt [Zofran Odt] 4 mg PO Q4HR PRN 01/17/20 01/17/20 Promethazine [Phenergan] 25 mg PO Q6H PRN #10 tab 01/17/20 SUMAtriptan [Imitrex] 25 mg PO ONCE PRN #20 tablet 01/17/20 Venlafaxine [Effexor] 37.5 mg PO DAILY 01/17/20 01/17/20 Penicillin V Potassium 500 mg PO QID #28 tablet 08/06/20 Esomeprazole Magnesium [Nexium] 20 mg PO DAILY #30 capsule. 10/28/20 Ondansetron Odt [Zofran] 4 mg TL Q6H PRN #10 tablet 10/28/20 Butalb/Acetaminophen/Caffeine 1 cap PO Q6H PRN #10 cap 07/11/21 [Fioricet 50-300-40 mg Capsule] HYDROcod/ACETAM 5/325 [[place] 5/325] 1 - 2 ea PO Q6H PRN #10 tablet 01/18/22 Meloxicam [Mobic] 15 mg PO DAILY PRN #20 tablet 01/18/22 Ondansetron Odt [Zofran] 4 mg TL Q6H PRN #10 tablet 04/27/22 - Allergies Allergies/Adverse Reactions: Allergies Allergy/AdvReac Type Severity Reaction Status Date / Time No Known Drug Allergies Allergy Verified 04/26/22 23:47 - Social History Does the pt smoke?: No Smoking Status: Never smoker Does the pt drink ETOH?: No Does the pt have substance abuse?: Yes - Immunizations Immunizations are current?: Yes - POLST Patient has POLST: No PD ED PE NORMAL - General General: Alert and oriented X 3, No acute distress, Well developed/nourished - HEENT HEENT: Atraumatic - Neck Neck: Supple, no meningeal sign - Cardiac Cardiac: RRR, No murmur, Strong equal pulses - Respiratory Respiratory: No respiratory distress, Clear bilaterally - Abdomen Abdomen: Normal bowel sounds, Soft, Non distended, Other (Mild generalized abdominal tenderness to palpation with no rebound or guarding) - Back Back: No CVA TTP - Derm Derm: Warm and dry - Extremities Extremities: No edema - Neuro Neuro: Normal speech - Psych Psych: Normal mood Results - Vitals Vitals: Vital Signs - 24 hr 04/26/22 04/27/22 23:43 00:24 Temperature 36.8 C Heart Rate 110 H 98 Respiratory 14 13 Rate Blood Pressure 140/76 H 118/83 H O2 Saturation 98 96 Oxygen O2 Source Room air - Labs Labs: Laboratory Tests 04/26/22 04/26/22 04/27/22 23:59 23:59 01:12 WBC 17.2 H RBC 4.71 Hgb 13.9 Hct 43.8 MCV 93.0 MCH 29.5 MCHC 31.7 L RDW 12.8 Plt Count 331 MPV 10.4 Neut # (Auto) 12.7 H Lymph # (Auto) 3.1 [place] # (Auto) 0.8 Eos # (Auto) 0.4 Baso # (Auto) 0.1 Absolute Nucleated RBC 0.00 Nucleated RBC % 0.0 Sodium 139 Potassium 3.5 Chloride 104 Carbon Dioxide 24 Anion Gap 11.0 BUN 7 Creatinine 0.7 Estimated GFR (MDRD) 103 Glucose 105 H Calcium 9.5 Total Bilirubin 0.7 AST 24 ALT 46 Alkaline Phosphatase 37 L Total Protein 8.0 Albumin 4.4 Globulin 3.6 Albumin/Globulin Ratio 1.2 Lipase 36 Urine Color YELLOW Urine Clarity [place] Urine pH 5.5 Ur Specific [place] >=1.030 H Urine Protein NEGATIVE Urine Glucose (UA) NEGATIVE Urine Ketones 15 H Urine Occult Blood NEGATIVE Urine Nitrite NEGATIVE Urine Bilirubin NEGATIVE Urine Urobilinogen 0.2 (NORMAL) Ur Leukocyte Esterase SMALL H Urine RBC None Seen Urine WBC 6-10 H Ur Squamous Epith Cells MANY Squamous H Urine Bacteria Moderate H Ur Microscopic Review INDICATED Urine Culture Comments NOT INDICATED Urine HCG, Qual NEGATIVE PD MEDICAL DECISION MAKING - ED course Complexity details: reviewed results, re-evaluated patient, d/w patient ED course: 0117 - Patient feeling better, repeat abdominal exam benign with no tenderness. Patient with abdominal cramping and an episode of emesis. Slightly tachycardic but patient reports having This previously and is being evaluated for it. Tachycardia improved with IV fluids. Labs with mild leukocytosis but otherwise unremarkable. Repeat abdominal exam is benign. Patient counseled on continuing with supportive care but aware of strict return precautions should pain return or any symptoms worsen. Departure - Departure Disposition: 01 Home, Self Care Clinical Impression: Abdominal cramping Vomiting Qualifiers: Vomiting type: unspecified Nausea presence: with nausea Qualified Code(s): R11.2 - Nausea with vomiting, unspecified Leukocytosis, unspecified Qualifiers: Leukocytosis type: unspecified Qualified Code(s): D72.829 - Elevated white blood cell count, unspecified Condition: Stable Instructions: ED Vomiting Diarrhea Nonspecific Ad Prescriptions: Ondansetron Odt [Zofran] 4 mg TL Q6H PRN #10 tablet PRN Reason: Nausea / Vomiting Comments: MA you were evaluated for abdominal cramping and vomiting.Your labs showed a slightly elevated white blood cell count But otherwise the remainder of your labs were reassuring. Your symptoms quickly improved with IV fluids and And anti-inflammatory medication. At this time I do not think you need imaging of your abdomen as your symptoms have quickly improved. I will send a prescription for nausea medication to the [facility] in [place]. Please pick this up tomorrow and use as needed. Please start with a liquid and bland diet tomorrow. If you are able to tolerate This you can resume back to your regular food. Please return to the emergency department if you develop any worsening symptoms such as pain, vomiting, diarrhea or other concerns. Discharge Date/Time: 04/27/22 01:49
[2022-04-27 00:31] LABS: ALBUMIN 4.4 g/dL (3.2-5.5); ALBUMIN/GLOBULIN RATIO 1.2 (1.0-2.2); BILIRUBIN,TOTAL 0.7 mg/dL (0.2-1.0); CALCIUM 9.5 mg/dL (8.5-10.3); CREATININE 0.7 mg/dL (0.4-1.0); POTASSIUM 3.5 mmol/L (3.5-5.0)
[2022-04-27] MEDS: SODIUM CHLORIDE 0.9% 1,000 ML IV STA (00:32)
[2022-04-27] MEDS: KETOROLAC 30 MG/ML VIAL IVP STA (00:32)
[2022-04-27 01:20] LABS: BILIRUBIN,URINE NEGATIVE (NEGATIVE); GLUCOSE, URINE (UA) NEGATIVE (NEGATIVE); KETONES,URINE (UA) 15 mg/dL (NEGATIVE); LEUKOCYTE ESTERASE, URINE SMALL (NEGATIVE); NITRITE,URINE NEGATIVE (NEGATIVE); OCCULT BLOOD,URINE NEGATIVE (NEGATIVE); PH,URINE 5.5 PH (5.0-7.5); PROTEIN,URINE NEGATIVE (NEGATIVE); UROBILINOGEN,URINE 0.2 (NORMAL) E.U./dL (NORMAL)
[2022-04-27 01:29] LABS: BACTERIA,URINE Moderate /HPF (None Seen); CLARITY,URINE SL. CLOUDY (CLEAR); HCG UR QUAL NEGATIVE; RBC,URINE None Seen /HPF (0-5); SQUAMOUS EPITHELIAL CELL,UR MANY Squamous (<= Few)
== END 2022-04-27 01:49 | disposition home or self-care (01) ==
LOC: ED 23:39
DX: R10.30 Lower abdominal pain, unspecified (principal); R11.2 Nausea with vomiting, unspecified; D72.829 Elevated white blood cell count, unspecified
CPT/HCPCS: 36415; 80053; 81001; 81003; 81025; 83690; 85025; 87086; 96361; 96374; 99282

== ENCOUNTER 2022-06-21 22:21 | Emergency (ER) | payer OTHER ==
[2022-06-21 23:09] LABS: BASOPHILS # (AUTO) 0.1 10^3/uL (0.0-0.1); EOSINOPHILS # (AUTO) 0.2 10^3/uL (0.0-0.7); EOSINOPHILS % (AUTO) 2.3 %; HCT - HEMATOCRIT 38.2 % (37.0-47.0); HGB - HEMOGLOBIN 12.4 g/dL (12.0-16.0); LYMPHOCYTES # (AUTO) 3.7 10^3/uL (1.5-3.5); LYMPHOCYTES % (AUTO) 40.9 %; MEAN CORPUSCULAR HEMOGLOBIN 30.2 pg (27.0-31.0); MEAN CORPUSCULAR HGB CONC 32.5 g/dL (32.0-36.0); MEAN CORPUSCULAR VOLUME 92.9 fL (81.0-99.0); MEAN PLATELET VOLUME 10.7 fL (7.9-10.8); MONOCYTES # (AUTO) 0.6 10^3/uL (0.0-1.0); MONOCYTES % (AUTO) 6.8 %; NEUTROPHILS # (AUTO) 4.5 10^3/uL (1.5-6.6); NEUTROPHILS % (AUTO) 48.8 %; PLT - PLATELET COUNT 301 10^3/uL (130-450); RED BLOOD COUNT 4.11 10^6/uL (4.20-5.40); RED CELL DISTRIBUTION WIDTH 13.1 % (12.0-15.0); WHITE BLOOD COUNT 9.2 x10^3/uL (4.8-10.8)
[2022-06-21 23:21] LABS: ALBUMIN 4.3 g/dL (3.2-5.5); ALBUMIN/GLOBULIN RATIO 1.4 (1.0-2.2); BILIRUBIN,TOTAL 0.8 mg/dL (0.2-1.0); CALCIUM 9.4 mg/dL (8.5-10.3); CREATININE 0.7 mg/dL (0.4-1.0); POTASSIUM 3.7 mmol/L (3.5-5.0); TOTAL PROTEIN 7.3 g/dL (6.7-8.2)
--- NOTE | 2022-06-21 23:36 | XRAY Report ---
PROCEDURE: Chest 1 View X-Ray INDICATIONS: Chest pain TECHNIQUE: One view of the chest was acquired. COMPARISON: None. FINDINGS: Surgical changes and devices: None. Lungs and pleura: No pleural effusions or pneumothorax. Lungs are clear. Mediastinum: Mediastinal contours appear normal. Heart size is normal. Bones and chest wall: No suspicious bony lesions. Overlying soft tissues appear unremarkable. IMPRESSION: No acute cardiopulmonary process demonstrated radiographically. Reviewed by: Anil Bang MD on 06/21/2022 11:40 PM PDT Approved by: Anil Bang MD on 06/21/2022 11:40 PM PDT Station ID: [id number]
--- NOTE | 2022-06-22 01:44 | ED Physician Documentation ---
History of Present Illness - Stated complaint Stated Complaint: PALPITATIONS,TROUBLE BREATHING - Chief complaint Chief Complaint: Cardiac - History obtained from History obtained from: Patient - History of Present Illness Timing: How many weeks ago (2) - Additonal information Additional information: 26-year-old female with no reported past medical history presents for 2 weeks of intermittent, gradually worsening palpitations, chest pains, shortness of breath. Patient states that these used to be intermittent, but for the last 2 to 3 days they are now constant and causing her distress. She states that he has a cardiology appointment next month, but has been unable to reach her PCP for this matter. She states that she was referred to cardiology from her PCPs office without any blood work or imaging done. Dyspnea is constant, chest pain is intermittent, sharp, worse with deep inspiration. Reports family history of bicuspid valve. Takes OCPs, denies cigarette smoking, syncope, leg swelling, recent surgeries or immobilizations, family or personal history of coagulopathy. Review of Systems Ten Systems: 10 systems reviewed and negative Constitutional: denies: Fever, Chills Cardiac: reports: Chest pain / pressure, Palpitations. denies: Pedal edema, Calf pain Respiratory: reports: Dyspnea. denies: Cough, Wheezing Neurologic: denies: Syncope, Seizure PD PAST MEDICAL HISTORY - Past Medical History Past Medical History: Yes Cardiovascular: None Respiratory: None Neuro: Migraines Endocrine/Autoimmune: None GI: None RING PACKER: None : None HEENT: None Psych: Depression, Other Musculoskeletal: None Derm: None - Past Surgical History Past Surgical History: No - Present Medications Home Medications: Ambulatory Orders Medication Instructions Recorded Confirmed Guanfacine HCl 1 mg PO QPM 01/17/20 01/17/20 Ondansetron Odt [Zofran Odt] 4 mg PO Q4HR PRN 01/17/20 01/17/20 Promethazine [Phenergan] 25 mg PO Q6H PRN #10 tab 01/17/20 SUMAtriptan [Imitrex] 25 mg PO ONCE PRN #20 tablet 01/17/20 Venlafaxine [Effexor] 37.5 mg PO DAILY 01/17/20 01/17/20 Penicillin V Potassium 500 mg PO QID #28 tablet 08/06/20 Esomeprazole Magnesium [Nexium] 20 mg PO DAILY #30 capsule. 10/28/20 Ondansetron Odt [Zofran] 4 mg TL Q6H PRN #10 tablet 10/28/20 Butalb/Acetaminophen/Caffeine 1 cap PO Q6H PRN #10 cap 07/11/21 [Fioricet 50-300-40 mg Capsule] HYDROcod/ACETAM 5/325 [[place] 5/325] 1 - 2 ea PO Q6H PRN #10 tablet 01/18/22 Meloxicam [Mobic] 15 mg PO DAILY PRN #20 tablet 01/18/22 Ondansetron Odt [Zofran] 4 mg TL Q6H PRN #10 tablet 04/27/22 - Allergies Allergies/Adverse Reactions: Allergies Allergy/AdvReac Type Severity Reaction Status Date / Time No Known Drug Allergies Allergy Verified 06/21/22 22:34 - Social History Does the pt smoke?: No Smoking Status: Never smoker Does the pt drink ETOH?: No Does the pt have substance abuse?: Yes - Immunizations Immunizations are current?: Yes - POLST Patient has POLST: No PD ED PE NORMAL - Vitals Vital signs reviewed: Yes - General General: Alert and oriented X 3, No acute distress, Well developed/nourished - HEENT HEENT: Atraumatic, PERRL, EOMI, Ears normal, Moist mucous membranes - Neck Neck: Supple, no meningeal sign, No bony TTP, No adenopathy - Cardiac Cardiac: RRR, No murmur, Strong equal pulses - Respiratory Respiratory: No respiratory distress, Clear bilaterally - Abdomen Abdomen: Soft, Non tender, Non distended - Female Female : Deferred - Rectal Rectal: Deferred - Back Back: No CVA TTP, No spinal TTP - Derm Derm: Normal color, Warm and dry, No rash - Extremities Extremities: No deformity, No tenderness to palpate, Normal ROM s pain, No edema, No calf tenderness / cord - Neuro Neuro: Alert and oriented X 3, 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, No motor deficit, No sensory deficit, Normal speech - Psych Psych: Normal mood, Normal affect Results - Vitals Vitals: Vital Signs - 24 hr 06/21/22 06/21/22 06/22/22 22:28 23:10 01:00 Temperature 36.7 C 36.6 C Heart Rate 103 H 84 Respiratory 14 18 Rate Blood Pressure 129/105 H 127/79 119/71 O2 Saturation 100 98 06/22/22 01:49 Temperature 36.6 C Heart Rate 72 Respiratory 18 Rate Blood Pressure 118/70 O2 Saturation 99 Oxygen O2 Source Room air - EKG (time done) 2245 Rate: Rate (enter#) (90) Rhythm: NSR Wilber: Normal Intervals: Normal AK QRS: Normal Ischemia: Normal ST segments - Labs Labs: Laboratory Tests 06/21/22 06/21/22 06/21/22 22:59 22:59 22:59 WBC 9.2 RBC 4.11 L Hgb 12.4 Hct 38.2 MCV 92.9 MCH 30.2 MCHC 32.5 RDW 13.1 Plt Count 301 MPV 10.7 Neut # (Auto) 4.5 Lymph # (Auto) 3.7 H Toole # (Auto) 0.6 Eos # (Auto) 0.2 Baso # (Auto) 0.1 Absolute Nucleated RBC 0.00 Nucleated RBC % 0.0 D-Dimer Sodium 136 Potassium 3.7 Chloride 104 Carbon Dioxide 25 Anion Gap 7.0 BUN 8 Creatinine 0.7 Estimated GFR (MDRD) 103 Glucose 119 H Calcium 9.4 Total Bilirubin 0.8 AST 17 ALT 30 Alkaline Phosphatase 34 L Troponin I High Sens < 2.3 L Total Protein 7.3 Albumin 4.3 Globulin 3.0 Albumin/Globulin Ratio 1.4 Lipase 39 06/21/22 23:41 WBC RBC Hgb Hct MCV MCH MCHC RDW Plt Count MPV Neut # (Auto) Lymph # (Auto) Toole # (Auto) Eos # (Auto) Baso # (Auto) Absolute Nucleated RBC Nucleated RBC % D-Dimer 230.6 Sodium Potassium Chloride Carbon Dioxide Anion Gap BUN Creatinine Estimated GFR (MDRD) Glucose Calcium Total Bilirubin AST ALT Alkaline Phosphatase Troponin I High Sens Total Protein Albumin Globulin Albumin/Globulin Ratio Lipase PD MEDICAL DECISION MAKING - ED course Complexity details: reviewed results, re-evaluated patient, considered differential, d/w patient, d/w family ED course: Well-appearing female with several weeks of intermittent, gradually worsening symptoms. Patient is resting comfortably in ED bed, vital signs unremarkable. Unable to apply PERC rule to patient as she is on OCPs. All laboratory work including D-dimer is unremarkable. Patient has remained hemodynamically stable in ED bed, no abnormal findings on telemetry rhythm strip. Patient was informed of all of her results, she is relieved to know that it does not appear to be any acute finding with her heart or her lungs at this time. Due to her family history of bicuspid valve I strongly counseled that the patient keep her cardiology appointment as scheduled.Patient discharged home with her family in stable condition. Departure - Departure Disposition: 01 Home, Self Care Clinical Impression: Palpitations Dyspnea Qualifiers: Dyspnea type: unspecified Qualified Code(s): R06.00 - Dyspnea, unspecified Instructions: ED Chest Pain Atypical Unkn Cause, ED Dyspnea Shortness of Breath Comments: You have been seen today for palpitations, chest pains, shortness of breath. At this time your work-up is negative for life-threatening causes of the symptoms. Please keep your appointment with your dental ceramist helper as previously scheduled. Please return if you notice new or worsening symptoms. Discharge Date/Time: 06/22/22 01:56
[2022-06-22 01:51] VITALS: BP 118/70
== END 2022-06-22 01:56 | disposition home or self-care (01) ==
LOC: ED 22:21
DX: R00.2 Palpitations (principal); R06.09 Other forms of dyspnea
CPT/HCPCS: 36415; 80053; 83690; 84484; 85025; 85379; 93005; 99283; 99284

== ENCOUNTER 2022-09-07 23:45 | Emergency (ER) | payer OTHER ==
--- OUTSIDE RECORDS SUMMARY | 2022-09-07 23:50 | EXTERNAL MEDICAL SUMMARY RPT | Continuity of Care Document ---
:1995 Author Organization [facility] Address [address] [place] [address] Phone Allergies No information. Encounters No information. Functional Status No information. Immunizations No information. Medications No information. Problems No information. Procedures No information. Results/Labs test date author facility value unit interpret ation Result panel 1 (unknown) (no (unknown) (unknown) (no value) (units (unk nown) date) unknown) (unknown) (no (unknown) (unknown) [address] [place] [address] (units (unknown) date) unknown) (unknown) (no (unknown) (unknown) 768 (units (unkno wn) date) unknown) (unknown) (no (unknown) (unknown) Accession Number: (units (unknown) date) unknown) (unknown) (no (unknown) (unknown) Age/Sex: 27 / F (units (unknown) date) Date of Service: unknown) (unknown) (no (unknown) (unknown) [place], [place] (units ( unknown) date) [id number] unknown) (unknown) (no (unknown) (unknown) CARDIAC STRESS: (units (unknown) date) Patient underwent unknown) exercise stress test under the supervision (unknown) (no (unknown) (unknown) CONCLUSION: (units (un known) date) Exercise stress unknown) test is negative for inducible ischemia. Is (unknown) (no (unknown) (unknown) COPIES MNE: PALV; (units (unknown) date) unknown) (unknown) (no (unknown) (unknown) Correlate (units (unkn own) date) clinically. unknown) (unknown) (no (unknown) (unknown) DATE OF SERVICE: (units (unknown) date) unknown) (unknown) (no (unknown) (unknown) DICTATING (units (unkn own) date) MD/COPIES TO: Cruzito unknown) MD Destiny (unknown) (no (unknown) (unknown) : 1995 (units (unknown) date) Acct:[id number] unknown) (unknown) (no (unknown) (unknown) Draft (units (unkno wn) date) unknown) (unknown) (no (unknown) (unknown) Heart rate dropped (units (unknown) date) from 160 to about unknown) 109 beats per minute. She has (unknown) (no (unknown) (unknown) INDICATION: (units (un known) date) History of postural unknown) orthostatic tachycardia syndrome, palpitation, (unknown) (no (unknown) (unknown) [facility] (units (unknown) date) unknown) (unknown) (no (unknown) (unknown) Rita Rutledge - MRN: (units (unknown) date) [id number] unknown) (unknown) (no (unknown) (unknown) Loc: RAD (units (unkno wn) date) unknown) (unknown) (no (unknown) (unknown) Nuclear Medicine (units (unknown) date) Report unknown) (unknown) (no (unknown) (unknown) Ordering Provider: (units (unknown) date) unknown) (unknown) (no (unknown) (unknown) PACs as well. No (units (unknown) date) complex unknown) supraventricular or ventricular arrhythmias. No (unknown) (no (unknown) (unknown) PROCEDURE: (units (unk nown) date) Exercise stress unknown) test. (unknown) (no (unknown) (unknown) Patient: (units (unkno wn) date) Rita Rutledge MR#: unknown) [id number] (unknown) (no (unknown) (unknown) Procedure: (units (unk nown) date) unknown) (unknown) (no (unknown) (unknown) PRESCHOOL PRINCIPAL/fn/KL (units (unkno wn) date) unknown) (unknown) (no (unknown) (unknown) an attending (units (u nknown) date) staff. The patient unknown) walked on Robert protocol for 3 minutes and 57 (unknown) (no (unknown) (unknown) beats (units (unkno wn) date) unknown) (unknown) (no (unknown) (unknown) chest (units (unkno wn) date) unknown) (unknown) (no (unknown) (unknown) dd: 07/27/2022 (units (unknown) date) 17:51:00 dt: unknown) 07/27/2022 18:45:00 (unknown) (no (unknown) (unknown) discomfort. The (units (unknown) date) patient had unknown) lightheadedness and mild shortness of breath. The (unknown) (no (unknown) (unknown) discontinued. (units ( unknown) date) Achieved 7 METs of unknown) workload and functional aerobic impairment (unknown) (no (unknown) (unknown) doc#: (units (unkno wn) date) [id number]/job#: unknown) [id number] (unknown) (no (unknown) (unknown) dyspnea. (units (unkno wn) date) unknown) (unknown) (no (unknown) (unknown) heart rate. [place] (units (unknown) date) lightheadedness and unknown) shortness of breath. Hence, test was (unknown) (no (unknown) (unknown) intermittent (units (u nknown) date) unknown) (unknown) (no (unknown) (unknown) ischemic changes. (units (unknown) date) Occasional PVCs unknown) were seen. Within 1 minute in recovery. (unknown) (no (unknown) (unknown) mildly (units (unkno wn) date) unknown) (unknown) (no (unknown) (unknown) of (units (unkno wn) date) unknown) (unknown) (no (unknown) (unknown) pain. (units (unkno wn) date) unknown) (unknown) (no (unknown) (unknown) patient has known (units (unknown) date) history of postural unknown) orthostatic tachycardia syndrome. (unknown) (no (unknown) (unknown) per minute with (units (unknown) date) sinus tachycardia. unknown) During stress, there were no convincing (unknown) (no (unknown) (unknown) position with (units ( unknown) date) sinus tachycardia. unknown) Maximum heart rate was 161 beats per minute (unknown) (no (unknown) (unknown) positive 60 (units (un known) date) percent. Baseline unknown) blood pressure was 118/84. At rest, her heart (unknown) (no (unknown) (unknown) premature (units (unkn own) date) ventricular unknown) contractions without any complex arrhythmias. No chest (unknown) (no (unknown) (unknown) pressure response. (units (unknown) date) However, there was unknown) significant jump from supine to standing (unknown) (no (unknown) (unknown) rate was initially (units (unknown) date) 57. However, upon unknown) standing, she developed heart rate of 110 (unknown) (no (unknown) (unknown) seconds, achieved (units (unknown) date) maximum heart rate unknown) of 161, which was 83 percent of target (unknown) (no (unknown) (unknown) submaximal (units (unk nown) date) exercise stress unknown) test. Very poor exercise tolerance. Normal blood (unknown) (no (unknown) (unknown) with enhanced (units ( unknown) date) chronotropic unknown) response. Some premature atrial contractions and (unknown) (no (unknown) (unknown) with sinus (units (unk nown) date) tachycardia. At the unknown) end of first stage, her heart rate was 152 Result panel 2 (unknown) (no date) (unknown) (unknown) Negative (units (unkn own) unknown) (unknown) (no date) (unknown) (unknown) Negative (units (unkn own) unknown) Result panel 3 (unknown) (no (unknown) (unknown) (no value) (units (unk nown) date) unknown) (unknown) (no (unknown) (unknown) [address] [place] [address] (units (unknown) date) unknown) (unknown) (no (unknown) (unknown) 768 (units (unkno wn) date) unknown) (unknown) (no (unknown) (unknown) Accession Number: (units (unknown) date) unknown) (unknown) (no (unknown) (unknown) Age/Sex: 27 / F (units (unknown) date) Date of Service: unknown) (unknown) (no (unknown) (unknown) [place], [place] (units ( unknown) date) [id number] unknown) (unknown) (no (unknown) (unknown) CARDIAC STRESS: (units (unknown) date) Patient underwent unknown) exercise stress test under the supervision of (unknown) (no (unknown) (unknown) CONCLUSION: (units (un known) date) Exercise stress unknown) test is negative for inducible ischemia. It is (unknown) (no (unknown) (unknown) COPIES MNE: PALV; (units (unknown) date) unknown) (unknown) (no (unknown) (unknown) Correlate (units (unkn own) date) clinically. unknown) (unknown) (no (unknown) (unknown) DATE OF SERVICE: (units (unknown) date) unknown) (unknown) (no (unknown) (unknown) DICTATING (units (unkn own) date) MD/COPIES TO: Cruzito unknown) MD Destiny (unknown) (no (unknown) (unknown) : 1995 (units (unknown) date) Acct:[id number] unknown) (unknown) (no (unknown) (unknown) Draft (units (unkno wn) date) unknown) (unknown) (no (unknown) (unknown) Heart rate dropped (units (unknown) date) from 160 to about unknown) 109 beats per minute. She has intermittent (unknown) (no (unknown) (unknown) INDICATION: (units (un known) date) History of postural unknown) orthostatic tachycardia syndrome, palpitation, (unknown) (no (unknown) (unknown) [facility] (units (unknown) date) unknown) (unknown) (no (unknown) (unknown) Rita Rutledge - MRN: (units (unknown) date) [id number] unknown) (unknown) (no (unknown) (unknown) Loc: RAD (units (unkno wn) date) unknown) (unknown) (no (unknown) (unknown) Nuclear Medicine (units (unknown) date) Report unknown) (unknown) (no (unknown) (unknown) Ordering Provider: (units (unknown) date) unknown) (unknown) (no (unknown) (unknown) PACs as well. No (units (unknown) date) complex unknown) supraventricular or ventricular arrhythmias. No chest (unknown) (no (unknown) (unknown) PROCEDURE: (units (unk nown) date) Exercise stress unknown) test. (unknown) (no (unknown) (unknown) Patient: (units (unkno wn) date) Rita Rutledge MR#: unknown) [id number] (unknown) (no (unknown) (unknown) Procedure: (units (unk nown) date) unknown) (unknown) (no (unknown) (unknown) PRESCHOOL PRINCIPAL/fn/KL (units (unkno wn) date) unknown) (unknown) (no (unknown) (unknown) an attending (units (u nknown) date) staff. The patient unknown) walked on Robert protocol for 3 minutes and 57 (unknown) (no (unknown) (unknown) dd: 07/27/2022 (units (unknown) date) 17:51:00 dt: unknown) 07/27/2022 18:45:00 (unknown) (no (unknown) (unknown) discomfort. The (units (unknown) date) patient had unknown) lightheadedness and mild shortness of breath. The (unknown) (no (unknown) (unknown) discontinued. (units ( unknown) date) Achieved 7 METs of unknown) workload and functional aerobic impairment (unknown) (no (unknown) (unknown) doc#: (units (unkno wn) date) [id number]/job#: unknown) [id number] (unknown) (no (unknown) (unknown) dyspnea. (units (unkno wn) date) unknown) (unknown) (no (unknown) (unknown) heart rate. [place] (units (unknown) date) lightheadedness and unknown) shortness of breath. Hence, test was (unknown) (no (unknown) (unknown) ischemic changes. (units (unknown) date) Occasional PVCs unknown) were seen. Within 1 minute in recovery. (unknown) (no (unknown) (unknown) mildly (units (unkno wn) date) unknown) (unknown) (no (unknown) (unknown) pain. (units (unkno wn) date) unknown) (unknown) (no (unknown) (unknown) patient has known (units (unknown) date) history of postural unknown) orthostatic tachycardia syndrome. (unknown) (no (unknown) (unknown) per minute with (units (unknown) date) sinus tachycardia. unknown) During stress, there were no convincing (unknown) (no (unknown) (unknown) position with (units ( unknown) date) sinus tachycardia. unknown) Maximum heart rate was 161 beats per minute (unknown) (no (unknown) (unknown) positive 60 (units (un known) date) percent. Baseline unknown) blood pressure was 118/84. At rest, her heart (unknown) (no (unknown) (unknown) premature (units (unkn own) date) ventricular unknown) contractions without any complex arrhythmias. No chest (unknown) (no (unknown) (unknown) pressure response. (units (unknown) date) However, there was unknown) significant jump from supine to standing (unknown) (no (unknown) (unknown) rate was initially (units (unknown) date) 57. However, upon unknown) standing, she developed heart rate of 110 (unknown) (no (unknown) (unknown) seconds, achieved (units (unknown) date) maximum heart rate unknown) of 161, which was 83 percent of target (unknown) (no (unknown) (unknown) submaximal (units (unk nown) date) exercise stress unknown) test. Very poor exercise tolerance. Normal blood (unknown) (no (unknown) (unknown) with enhanced (units ( unknown) date) chronotropic unknown) response. Some premature atrial contractions and (unknown) (no (unknown) (unknown) with sinus (units (unk nown) date) tachycardia. At the unknown) end of first stage, her heart rate was 152 beats Result panel 4 (unknown) (no (unknown) (unknown) (no value) (units (unk nown) date) unknown) (unknown) (no (unknown) (unknown) [address] [place] [address] (units (unknown) date) unknown) (unknown) (no (unknown) (unknown) 768 (units (unkno wn) date) unknown) (unknown) (no (unknown) (unknown) Accession Number: (units (unknown) date) unknown) (unknown) (no (unknown) (unknown) Age/Sex: 27 / F (units (unknown) date) Date of Service: unknown) (unknown) (no (unknown) (unknown) [place], [place] (units ( unknown) date) [id number] unknown) (unknown) (no (unknown) (unknown) CARDIAC STRESS: (units (unknown) date) Patient underwent unknown) exercise stress test under the supervision of (unknown) (no (unknown) (unknown) CONCLUSION: (units (un known) date) Exercise stress unknown) test is negative for inducible ischemia. It is (unknown) (no (unknown) (unknown) COPIES MNE: PALV; (units (unknown) date) unknown) (unknown) (no (unknown) (unknown) Correlate (units (unkn own) date) clinically. unknown) (unknown) (no (unknown) (unknown) DATE OF SERVICE: (units (unknown) date) unknown) (unknown) (no (unknown) (unknown) DICTATING (units (unkn own) date) MD/COPIES TO: Cruzito unknown) MD Destiny (unknown) (no (unknown) (unknown) : 1995 (units (unknown) date) Acct:[id number] unknown) (unknown) (no (unknown) (unknown) Heart rate dropped (units (unknown) date) from 160 to about unknown) 109 beats per minute. She has intermittent (unknown) (no (unknown) (unknown) INDICATION: (units (un known) date) History of postural unknown) orthostatic tachycardia syndrome, palpitation, (unknown) (no (unknown) (unknown) [facility] (units (unknown) date) unknown) (unknown) (no (unknown) (unknown) Rita Rutledge - MRN: (units (unknown) date) [id number] unknown) (unknown) (no (unknown) (unknown) Loc: RAD (units (unkno wn) date) unknown) (unknown) (no (unknown) (unknown) Nuclear Medicine (units (unknown) date) Report unknown) (unknown) (no (unknown) (unknown) Ordering Provider: (units (unknown) date) unknown) (unknown) (no (unknown) (unknown) PACs as well. No (units (unknown) date) complex unknown) supraventricular or ventricular arrhythmias. No chest (unknown) (no (unknown) (unknown) PROCEDURE: (units (unk nown) date) Exercise stress unknown) test. (unknown) (no (unknown) (unknown) Patient: (units (unkno wn) date) Rita Rutledge MR#: unknown) [id number] (unknown) (no (unknown) (unknown) Procedure: (units (unk nown) date) unknown) (unknown) (no (unknown) (unknown) Signed (units (unkno wn) date) unknown) (unknown) (no (unknown) (unknown) PRESCHOOL PRINCIPAL/fn/KL (units (unkno wn) date) unknown) (unknown) (no (unknown) (unknown) an attending (units (u nknown) date) staff. The patient unknown) walked on Robert protocol for 3 minutes and 57 (unknown) (no (unknown) (unknown) dd: 07/27/2022 (units (unknown) date) 17:51:00 dt: unknown) 07/27/2022 18:45:00 (unknown) (no (unknown) (unknown) discomfort. The (units (unknown) date) patient had unknown) lightheadedness and mild shortness of breath. The (unknown) (no (unknown) (unknown) discontinued. (units ( unknown) date) Achieved 7 METs of unknown) workload and functional aerobic impairment (unknown) (no (unknown) (unknown) doc#: (units (unkno wn) date) [id number]/job#: unknown) [id number] (unknown) (no (unknown) (unknown) dyspnea. (units (unkno wn) date) unknown) (unknown) (no (unknown) (unknown) heart rate. [place] (units (unknown) date) lightheadedness and unknown) shortness of breath. Hence, test was (unknown) (no (unknown) (unknown) ischemic changes. (units (unknown) date) Occasional PVCs unknown) were seen. Within 1 minute in recovery. (unknown) (no (unknown) (unknown) mildly (units (unkno wn) date) unknown) (unknown) (no (unknown) (unknown) pain. (units (unkno wn) date) unknown) (unknown) (no (unknown) (unknown) patient has known (units (unknown) date) history of postural unknown) orthostatic tachycardia syndrome. (unknown) (no (unknown) (unknown) per minute with (units (unknown) date) sinus tachycardia. unknown) During stress, there were no convincing (unknown) (no (unknown) (unknown) position with (units ( unknown) date) sinus tachycardia. unknown) Maximum heart rate was 161 beats per minute (unknown) (no (unknown) (unknown) positive 60 (units (un known) date) percent. Baseline unknown) blood pressure was 118/84. At rest, her heart (unknown) (no (unknown) (unknown) premature (units (unkn own) date) ventricular unknown) contractions without any complex arrhythmias. No chest (unknown) (no (unknown) (unknown) pressure response. (units (unknown) date) However, there was unknown) significant jump from supine to standing (unknown) (no (unknown) (unknown) rate was initially (units (unknown) date) 57. However, upon unknown) standing, she developed heart rate of 110 (unknown) (no (unknown) (unknown) seconds, achieved (units (unknown) date) maximum heart rate unknown) of 161, which was 83 percent of target (unknown) (no (unknown) (unknown) submaximal (units (unk nown) date) exercise stress unknown) test. Very poor exercise tolerance. Normal blood (unknown) (no (unknown) (unknown) with enhanced (units ( unknown) date) chronotropic unknown) response. Some premature atrial contractions and (unknown) (no (unknown) (unknown) with sinus (units (unk nown) date) tachycardia. At the unknown) end of first stage, her heart rate was 152 beats Social History No information. Vital Signs No information.
--- NOTE | 2022-09-08 02:01 | ED Physician Documentation ---
History of Present Illness - Stated complaint Stated Complaint: SOA,RACING HEART,NAUSEA - Chief complaint Chief Complaint: Cardiac - History obtained from History obtained from: Patient - History of Present Illness Timing: Today Pain level now: 0 - Additonal information Additional information: c/o dyspnea, rapid palpitations, dizziness (both when standing as well as when lying down and at rest), decreased appetite. Symptoms started over past 24-48 hours. She had decrease in lithium dose four days ago. Patient recently diagnosed with POTS. Patient was evaluated in this ED for similar symptoms earlier this year but no diagnostic results on testing at that time. Review of Systems Constitutional: reports: Reviewed and negative Eyes: reports: Reviewed and negative Cardiac: reports: Palpitations. 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 : None HEENT: None Psych: Depression, Other Musculoskeletal: None Derm: None - Past Surgical History Past Surgical History: No - Present Medications Home Medications: Ambulatory Orders Medication Instructions Recorded Confirmed [place] Carbonate [[place] 450 mg PO DAILY 09/08/22 09/08/22 Carbonate ER] - Allergies Allergies/Adverse Reactions: Allergies Allergy/AdvReac Type Severity Reaction Status Date / Time No Known Drug Allergies Allergy Verified 09/07/22 23:57 - Social History Does the pt smoke?: No Smoking Status: Never smoker Does the pt drink ETOH?: No Does the pt have substance abuse?: Yes - Immunizations Immunizations are current?: Yes - POLST Patient has POLST: No PD ED PE NORMAL - Vitals Vital signs reviewed: Yes - General General: Alert and oriented X 3, No acute distress, Well developed/nourished - HEENT HEENT: Moist mucous membranes - Cardiac Cardiac: RRR, No murmur, No gallop, No rub - Respiratory Respiratory: No respiratory distress, Clear bilaterally - Abdomen Abdomen: Soft, Non tender - Derm Derm: Normal color, Warm and dry Results - Vitals Vitals: Oxygen O2 Source Room air - EKG (time done) No standard instances Rate: Rate (enter#) (106) Rhythm: Sinus tachycardia [place]: Normal Intervals: Normal MD QRS: Normal Ischemia: Normal ST segments - Labs Labs: Laboratory Tests 09/08/22 09/08/22 09/08/22 02:35 02:44 02:44 WBC 12.1 H RBC 4.46 Hgb 13.0 Hct 40.6 MCV 91.0 MCH 29.1 MCHC 32.0 RDW 12.5 Plt Count 349 MPV 10.8 Neut # (Auto) Not Reportable Lymph # (Auto) Not Reportable [place] # (Auto) Not Reportable Eos # (Auto) Not Reportable Baso # (Auto) Not Reportable Absolute Nucleated RBC Not Reportable Total Counted 100 Band Neuts % (Manual) 0 Reactive Lymphs % (Man) 12 Abnorm Lymph % (Manual) 0 Nucleated RBC % Not Reportable Neutrophils # (Manual) 5.3 Lymphocytes # (Manual) 5.8 H Monocytes # (Manual) 0.5 Eosinophils # (Manual) 0.4 Basophils # (Manual) 0.1 Differential Comment MANUAL DIFFERENTIAL Platelet Estimate NORMAL (130-450,000) RBC Morph Micro Appear NORMAL APPEARANCE Sodium 138 Potassium 3.4 L Chloride 107 Carbon Dioxide 20 L Anion Gap 11.0 BUN 10 Creatinine 0.8 Estimated GFR (MDRD) 87 L Glucose 91 Calcium 9.6 TSH Urine HCG, Qual NEGATIVE 09/08/22 02:44 WBC RBC Hgb Hct MCV MCH MCHC RDW Plt Count MPV Neut # (Auto) Lymph # (Auto) [place] # (Auto) Eos # (Auto) Baso # (Auto) Absolute Nucleated RBC Total Counted Band Neuts % (Manual) Reactive Lymphs % (Man) Abnorm Lymph % (Manual) Nucleated RBC % Neutrophils # (Manual) Lymphocytes # (Manual) Monocytes # (Manual) Eosinophils # (Manual) Basophils # (Manual) Differential Comment Platelet Estimate RBC Morph Micro Appear Sodium Potassium Chloride Carbon Dioxide Anion Gap BUN Creatinine Estimated GFR (MDRD) Glucose Calcium TSH 3.67 Urine HCG, Qual PD MEDICAL DECISION MAKING - ED course Complexity details: reviewed results, re-evaluated patient, considered differential, d/w patient ED course: unremarkable test results (TSH, CBC, BMP, and negative urine HCG). Vital signs stable throughout ED stay except some mild sinus tachycardia. Cause of symptoms not apparent at this time. Should be unrelated to lithium dosing change as it was a decrease in dose rather than increase. Results reviewed with patient, return precautions discussed, advised to follow up with primary care provider Departure - Departure Disposition: 01 Home, Self Care Clinical Impression: Dyspnea, Palpitations Condition: Good Instructions: ED Dyspnea Shortness of Breath, ED Palpitations Follow-Up: MUMTAZ GARZA, [Primary Care Provider] - Comments: The results of tonight's tests are unremarkable. Your white blood cell count is minimally elevated above normal and your potassium is just below normal. Neither of these findings is specific to a particular problem or diagnosis and neither is abnormal to a concerning extent; they are coincident (not causing symptoms) and do not need further testing. Follow up with your primary care provider for reevaluation Discharge Date/Time: 09/08/22 03:52
--- NOTE | 2022-09-08 02:01 | ED Physician Documentation ---
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 HEENT: None Psych: Depression, Other Musculoskeletal: None Derm: None - Past Surgical History Past Surgical History: No - Present Medications Home Medications: Ambulatory Orders Medication Instructions Recorded Confirmed Guanfacine HCl 1 mg PO QPM 01/17/20 01/17/20 Ondansetron Odt [Zofran Odt] 4 mg PO Q4HR PRN 01/17/20 01/17/20 Promethazine [Phenergan] 25 mg PO Q6H PRN #10 tab 01/17/20 SUMAtriptan [Imitrex] 25 mg PO ONCE PRN #20 tablet 01/17/20 Venlafaxine [Effexor] 37.5 mg PO DAILY 01/17/20 01/17/20 Penicillin V Potassium 500 mg PO QID #28 tablet 08/06/20 Esomeprazole Magnesium [Nexium] 20 mg PO DAILY #30 capsule. 10/28/20 Ondansetron Odt [Zofran] 4 mg TL Q6H PRN #10 tablet 10/28/20 Butalb/Acetaminophen/Caffeine 1 cap PO Q6H PRN #10 cap 07/11/21 [Fioricet 50-300-40 mg Capsule] HYDROcod/ACETAM 5/325 [[place] 5/325] 1 - 2 ea PO Q6H PRN #10 tablet 01/18/22 Meloxicam [Mobic] 15 mg PO DAILY PRN #20 tablet 01/18/22 Ondansetron Odt [Zofran] 4 mg TL Q6H PRN #10 tablet 04/27/22 - Allergies Allergies/Adverse Reactions: Allergies Allergy/AdvReac Type Severity Reaction Status Date / Time No Known Drug Allergies Allergy Verified 09/07/22 23:57 - Social History Does the pt smoke?: No Smoking Status: Never smoker Does the pt drink ETOH?: No Does the pt have substance abuse?: Yes - Immunizations Immunizations are current?: Yes - POLST Patient has POLST: No Results - Vitals Vitals: Vital Signs - 24 hr 09/07/22 23:54 Temperature 37 C Heart Rate 106 H Respiratory 16 Rate Blood Pressure 120/78 O2 Saturation 99 Oxygen O2 Source Room air
[2022-09-08] MEDS ORDERED: SODIUM CHLORIDE 0.9% 1,000 ML IV STA (02:31)
[2022-09-08 02:47] LABS: EOSINOPHILS % (AUTO) 1.1 %; HCT - HEMATOCRIT 40.6 % (37.0-47.0); LYMPHOCYTES % (AUTO) 41.6 %; MEAN CORPUSCULAR HEMOGLOBIN 29.1 pg (27.0-31.0); MEAN PLATELET VOLUME 10.8 fL (7.9-10.8); MONOCYTES % (AUTO) 5.9 %; NEUTROPHILS % (AUTO) 50.2 %; PLT - PLATELET COUNT 349 10^3/uL (130-450); RED BLOOD COUNT 4.46 10^6/uL (4.20-5.40); RED CELL DISTRIBUTION WIDTH 12.5 % (12.0-15.0); WHITE BLOOD COUNT 12.1 x10^3/uL (4.8-10.8)
[2022-09-08 02:53] LABS: ABNORMAL LYMPHS % (MANUAL) 0 %; BAND NEUTROPHILS % (MANUAL) 0 %
[2022-09-08 02:56] LABS: HCG UR QUAL NEGATIVE
[2022-09-08 03:01] LABS: CALCIUM 9.6 mg/dL (8.5-10.3); CREATININE 0.8 mg/dL (0.4-1.0); POTASSIUM 3.4 mmol/L (3.5-5.0)
[2022-09-08 03:09] LABS: BASOPHILS # (MANUAL) 0.1 10^3/uL (0-0.1); BASOPHILS % (MANUAL) 1 %; DIFFERENTIAL COMMENT MANUAL DIFFERENTIAL; EOSINOPHILS # (MANUAL) 0.4 10^3/uL (0-0.7); LYMPHOCYTES # (MANUAL) 5.8 10^3/uL (1.5-3.5); LYMPHOCYTES % (MANUAL) 36 %; MONOCYTES # (MANUAL) 0.5 10^3/uL (0.0-1.0); NEUTROPHILS # (MANUAL) 5.3 10^3/uL (1.5-6.6); PLATELET ESTIMATE, MANUAL NORMAL (130-450,000) (NORMAL); RBC MORPHOLOGY (MULTIPLE) NORMAL APPEARANCE (NORMAL); REACTIVE LYMPHS % (MANUAL) 12 %
[2022-09-08 04:00] VITALS: BP 108/72
== END 2022-09-08 03:52 | disposition home or self-care (01) ==
LOC: ED 23:45
DX: R06.00 Dyspnea, unspecified (principal); R00.0 Tachycardia, unspecified; R42 Dizziness and giddiness; G90.A Postural orthostatic tachycardia syndrome [POTS]
CPT/HCPCS: 36415; 80048; 81025; 84443; 85025; 93005; 99282; 99284